=== PATIENT | male | born 1975 | race Caucasian/White ===

== ENCOUNTER → 2021-05-03 | Outpatient (CLI) | payer BC ==
[~2021-05-03] MED LIST: COLACE 100 MG100 MG PO; IBUPROFEN 200200 M1 PO; MIRALAX17 GM PO; MULTI VITAMIN1 EACH PO; PRAVACHOL40 MG PO; TRAMADOL 50 MG50 MG PO; TYLENOL325 MG PO
== END ==
LOC: LAB 10:47
PROVIDERS: ATTEND Student in an Organized Health Care Education/Training Program
DX: Z01.812 Encounter for preprocedural laboratory examination (principal); Z20.822 Contact with and (suspected) exposure to COVID-19

== ENCOUNTER → 2021-05-04 | Day surgery (SDC) | payer BC ==
[~2021-05-04] VITALS: Ht 177.8 cm; Wt 95.3 kg
[2021-05-04 07:51] VITALS: BP 132/89
[2021-05-04 08:48] VITALS: BP 132/89
--- NOTE | 2021-05-06 12:07 | PATH ---
[facility] [address] [place] [address] PATHOLOGY RPT PROCEDURE Name: VERONIKACHANTELLEMELISSATESFAYE LOWELL Room #: [facility] M.R.#: [id number] Admission: 05/04/21 Date of : 73 Discharge: Report #: [id number] Path Case #: [id number] [facility] Accession Number: [id number] . 01 Material submitted: . hernia - HERNIAL SAC . 01 Clinical history: . HERINA REPAIR UMBILICAL . 02 Diagnosis: Fibroadipose tissue (umbilical hernia sac): - Lobulated fibroadipose tissue consistent with contents of umbilical hernia identified. (CELINE:haresh; 05/05/2021) S 05/05/2021 1252 Local . 02 Comment: We find no evidence of malignancy in any of the tissue examined. (CELINE:haresh; 05/05/2021) . 02 Electronically signed: . El Bey MD, Pathologist NPI- [id number] . 01 Gross description: . Fixative: Formalin Labeled: Hernial sac Specimen received: Pale shipman-pink to bright yellow fibroadipose tissue Dimensions: 5.7 x 2.6 x 0.9 cm Abnormalities: None identified Submitted representatively in cassette A1. ([facility]; 05/04/2021) [facility] 05/04/2021 1627 Local . 02 Pathologist provided ICD-10: K42.9 . 02 CPT . 515004 Specimen Comment: A courtesy copy of this report has been sent to [phone] Specimen Comment: Report sent to Specimen Comment: A duplicate report has been generated due to demographic updates. Performed at: 01 [facility] [address] [place] [address] [id number] [address] PATHOLOGY RPT PROCEDURE Name: TESFAYE SIMS Room #: [facility] Jose.Dylon.#: [id number] Admission: 05/04/21 Date of : 73 Discharge: Report #: [id number] Path Case #: [id number] MD Martin Valera MD Phone: [phone] Performed at: 02 [facility] [address] [id number] MD El Bey MD Phone: [phone]
== END | disposition home or self-care (01) ==
LOC: OR
PROVIDERS: ATTEND Surgery
DX: K42.0 Umbilical hernia with obstruction, without gangrene (principal); E78.5 Hyperlipidemia, unspecified; Z98.890 Other specified postprocedural states; Z79.899 Other long term (current) drug therapy
CPT/HCPCS: 50010; 50101; 50119; 50386; 50403; 54118; 56524; 56525; 56526; 62110; 62900; 70005